=== PATIENT | male | born 1980 | race African-American/Black ===

== ENCOUNTER 2019-02-11 07:39 | Emergency (ER) | payer OTHER ==
[2019-02-11 07:54] LABS: Hematocrit 44 % (42-52); Mean Corpuscular HGB Conc 35 g/dL (31-36); Mean Corpuscular Hemoglobin 32 pg (27-31); Mean Corpuscular Volume 92 fL (80-94); Mean Platelet Volume 8.8 fL (7.4-10.4); Platelet Count 224 10^3/uL (150-450); Red Blood Count 4.75 10^6 /uL (4.18-5.48); Red Cell Distribution Width 13 % (10-15); White Blood Count 7.1 10^3/uL (3.5-10.8)
[2019-02-11] MEDS ORDERED: NS 0.9% 1000 ML** 1,000 ML IV ONE ×2 (07:57→08:44)
[2019-02-11 08:02] LABS: INR 1.02 (0.82-1.09)
[2019-02-11 08:11] LABS: Albumin 4.4 g/dL (3.2-5.2); Albumin/Globulin Ratio 1.7 (1-3); BUN/Creatinine Ratio 12.9 (8-20); Calcium 9.3 mg/dL (8.6-10.3); EGFR African American 122.1 (>60); EGFR Non-African American 100.9 (>60); Globulin 2.6 g/dL (2-4); Potassium 4.4 mmol/L (3.5-5.0); Total Bilirubin 0.9 mg/dL (0.2-1.0)
[2019-02-11 08:27] LABS: ABS Basophils 0.1 10^3/ul (0-0.2); ABS Eosinophils 0.2 10^3/ul (0-0.6); ABS Lymphocytes 3.3 10^3/ul (1.0-4.8); ABS Monocytes 0.6 10^3/ul (0-0.8); ABS Neutrophils 2.9 10^3/ul (1.5-7.7); Eosinophil % 3.2 %; Lymphocyte % 46.8 %
[2019-02-11 08:41] LABS: Magnesium 1.9 mg/dL (1.9-2.7)
[2019-02-11] MEDS ORDERED: Aspirin 81 mg CHEW TAB* 81 MG TAB.CHEW PO ONE (08:45)
--- NOTE | 2019-02-11 08:50 | ED ---
HPI Chest Pain - HPI Summary HPI Summary: Pt is a 38 y/o M presenting to the ED with a chief complaint of epigatric pain - squeezing this am. Pt states he has been having palpitations for many months - pt ially onset this morning upon waking up described as fluttering. He reports palpitations and slight SOB at the time that has since resolved, and notes unrelated kidney pain. He denies nausea and diaphoresis. He states that he has hx of palpitations that he has not yet been completely evaluated for; he was supposed to be placed on a 48hr personnel monitor in September of 2018 but then was incarcerated, and is not currently seeing a garage manager. The palpitations come on intermittently without any specific aggravating or alleviating factors. Pt states has been seen at hospital x2 since incarcerated - advised to see cards. Currently no cp, sob, abd pain. no n/v. Pt states feels intermittent palp. No lightheadedness Pt smokes cigarettes. Used ecstasy before incarceration. no htn., dm, hld. no fam hx meds reviewed - History of Current Complaint Chief Complaint: EDChestPainROMI Time Seen by Provider: 02/11/19 07:55 Hx Obtained From: Patient Onset/Duration: Started Hours Ago, Resolved - palpitations are present, pain is not Timing: Intermittent, Lasting Minutes Initial Severity: Moderate Current Severity: Mild Pain Intensity: 3 Pain Scale Used: 0-10 Numeric Chest Pain Location: Left Anterior Chest Pain Radiates: No Character: Fluttering Aggravating Factor(s): Nothing Alleviating Factor(s): Nothing Associated Signs and Symptoms: Positive: Chest Pain, Shortness of Breath, Palpitations. Negative: Diaphoresis, Nausea - Allergy/Home Medications Allergies/Adverse Reactions: Allergies Allergy/AdvReac Type Severity Reaction Status Date / Time Penicillins Allergy Swelling Verified 02/11/19 07:47 Home Medications: Home Medications Albuterol HFA INHALER* [Ventolin HFA Inhaler*] 2 puff INH Q4HR PRN 02/11/19 [ History Confirmed 02/11/19] Claritin 10 MG CAP 10 mg PO DAILY 02/11/19 [History Confirmed 02/11/19] PMH/Surg Hx/FS Hx/Imm Hx Previously Healthy: Yes Endocrine/Hematology History: Denies: Hx Diabetes Cardiovascular History: Denies: Hx Hypercholesterolemia, Hx Hypertension Respiratory History: Reports: Hx Asthma - Surgical History Surgical History: None Infectious Disease History: No Infectious Disease History: Denies: Traveled Outside the [place] in Last 30 Days - Family History Known Family History: Positive: Diabetes, Other - CA, Non-Contributory Negative: Blood Disorder - no blood clots that he's aware of - Social History Alcohol Use: Occasionally - when not incarcerated Hx Substance Use: Yes Substance Use Type: Reports: Other - MDMA Hx Tobacco Use: Yes Smoking Status (MU): Current Some Day Smoker Review of Systems Negative: Skin Diaphoresis Positive: Palpitations, Chest Pain Positive: Shortness Of Breath Negative: Nausea Positive: other - "kidney pain" All Other Systems Reviewed And Are Negative: Yes Physical Exam - Summary Physical Exam Summary: Vital Signs Reviewed: Yes - accompanied by 2 correction officers A+Ox3, no distress Eyes: Conjunctiva Clear, JO ANN. EOM intact and full ENT: Hearing grossly normal TM x 2 clear, mmoist, uvula midline, no exudate, no erythema Neck: Positive: Supple Respiratory: Positive: No respiratory distress, No accessory muscle use + CTA throughout no w/r Cardiovascular: RRR nl s1, s2 no m/r CBT <2 sec non reproducible abd soft + BS nt/nd no guarding, no distension Musculoskeletal Exam: LOZADA x 4 without difficulty Strength Intact, ROM Intact Neurological: Positive: Alert, + sensation throughout Psychological: Positive: Normal Response To examiner Skin: Positive: no rash, no ecchymosis Triage Information Reviewed: Yes Vital Signs On Initial Exam: Initial Vitals Temp Pulse Resp BP Pulse Ox 98.2 F 74 18 149/51 96 02/11/19 07:40 02/11/19 07:40 02/11/19 07:40 02/11/19 07:40 02/11/19 07:40 Vital Signs Reviewed: Yes Diagnostics - Vital Signs Vital Signs Temp Pulse Resp BP Pulse Ox 02/11/19 07:40 98.2 F 74 18 149/51 96 - Laboratory Lab Results: Lab Results 02/11/19 02/11/19 02/11/19 Range/Units 07:47 07:47 07:47 WBC 7.1 (3.5-10.8) 10^3/uL RBC 4.75 (4.18-5.48) 10^6 /uL Hgb 15.0 (14.0-18.0) g/dL Hct 44 (42-52) % MCV 92 (80-94) fL MCH 32 H (27-31) pg MCHC 35 (31-36) g/dL RDW 13 (10-15) % Plt Count 224 (150-450) 10^3/uL MPV 8.8 (7.4-10.4) fL Neut % (Auto) 40.7 % Lymph % (Auto) 46.8 % [place] % (Auto) 8.3 % Eos % (Auto) 3.2 % Baso % (Auto) 1.0 % Absolute Neuts (auto) 2.9 (1.5-7.7) 10^3/ul Absolute Lymphs (auto) 3.3 (1.0-4.8) 10^3/ul Absolute Monos (auto) 0.6 (0-0.8) 10^3/ul Absolute Eos (auto) 0.2 (0-0.6) 10^3/ul Absolute Basos (auto) 0.1 (0-0.2) 10^3/ul Absolute Nucleated RBC 0.0 10^3/ul Nucleated RBC % 0.0 INR (Anticoag Therapy) 1.02 (0.82-1.09) Sodium 138 (135-145) mmol/L Potassium 4.4 (3.5-5.0) mmol/L Chloride 105 (101-111) mmol/L Carbon Dioxide 29 (22-32) mmol/L Anion Gap 4 (2-11) mmol/L BUN 11 (6-24) mg/dL Creatinine 0.85 (0.67-1.17) mg/dL Est GFR ( Amer) 122.1 (>60) Est GFR (Non-Af Amer) 100.9 (>60) BUN/Creatinine Ratio 12.9 (8-20) Glucose 87 (70-100) mg/dL Calcium 9.3 (8.6-10.3) mg/dL Magnesium 1.9 (1.9-2.7) mg/dL Total Bilirubin 0.90 (0.2-1.0) mg/dL AST 18 (13-39) U/L ALT 24 (7-52) U/L Alkaline Phosphatase 61 (34-104) U/L Troponin I 0.00 (<0.04) ng/mL Total Protein 7.0 (6.4-8.9) g/dL Albumin 4.4 (3.2-5.2) g/dL Globulin 2.6 (2-4) g/dL Albumin/Globulin Ratio 1.7 (1-3) Result Diagrams: 02/11/19 07:47 02/11/19 07:47 Lab Statement: Any lab studies that have been ordered have been reviewed, and results considered in the medical decision making process. - Radiology CXR Radiology Interpretation Completed By: Radiologist Summary of Radiographic Findings: No active cardiopulmonary disease is noted. ED physician has reviewed this report. - EKG 0739 Cardiac Rate: Bradycardia - 56bpm EKG Rhythm: Sinus Bradycardia ST Segment: Normal Ectopy: None Summary of EKG Findings: EKG at 0739 shows sinus bradycardia at 56bpm with nml ST segment, nml T-waves, nml axis. No acute changes. 1057 Cardiac Rate: Bradycardia - 58bpm EKG Rhythm: Sinus Bradycardia ST Segment: Normal Ectopy: None EKG Comparison: No Significant Change Summary of EKG Findings: EKG at 1057 shows sinus bradycardia at 58bpm with nml ST segment, nml T-waves, nml axis. No acute changes. No change from 0739. Re-Evaluation - Re-Evaluation 1st re-eval Re-Evaluation Time: 09:17 Change: Unchanged Comment: I spoke to the pt to inform him of the lab results. CXR neg 2nd re-eval Re-Evaluation Time: 11:14 Change: Improved Comment: Pt states he feels better. I informed him of his negative lab results and the plan for discharge, he is stable and agreeable with this plan. Chest Pain Course/Dx - Course Course Of Treatment: Patient presents to urgent care reporting that he's had some palpitations. Patient states he also had one episode of chest pain that happened about 6:30 this morning. Patient was sent here for further evaluation. Patient with an ongoing history of palpitations for many months. Patient has been referred to cardiology but has not been able to see them. Patient denies any trauma. Patient denies any SOB, nausea, diaphoresis. On exam vital signs are stable although he has a mildly elevated blood pressure. Nothing focal concerning physical exam. We'll give patient aspirin. EKG nondiagnostic study. We'll check labs including a d-dimer thyroid. We'll give intravenous fluid as well as aspirin. If this is negative anticipate a recheck in 3 hours. If this is negative we'll discharge patient back to his facility with recommendations to follow-up with cardiac. Patient comfortable in agreement with plan. - Diagnoses Provider Diagnoses: Palpitations Discharge ED - Sign-Out/Discharge Documenting (check all that apply): Patient Departure Patient Received Moderate/Deep Sedation with Procedure: No - Discharge Plan Condition: Stable Disposition: HOME Patient Education Materials: Heart Palpitations (ED) Referrals: Geoff CARLOS,Booker Navarrete [Primary Care Provider] - Additional Instructions: - Stay well hydrated. Drink plenty of non-caffinated beverages - work to decrease cigarette smoke - it is recommended you follow-up wit has garage manager as previously advised - Billing Disposition and Condition Condition: STABLE Disposition: Home - Attestation Statements Document Initiated by Scribe: Yes Documenting Scribe: Millie Yancey Provider For Whom Maudeibe is Documenting (Include Credential): Nicki Corona MD. Scribe Attestation: Millie Lujan, aried for Nicki Corona MD. on 02/11/19 at 1345. Scribe Documentation Reviewed: Yes Provider Attestation: The documentation as recorded by the maudeibMillie myrick accurately reflects the service I personally performed and the decisions made by , Nicki Corona MD. Status of Scribe Document: Viewed
[2019-02-11 09:23] LABS: TSH (Thyroid Stimulating Horm) 0.78 mcIU/mL (0.34-5.60)
[2019-02-11 11:36] VITALS: BP 125/83
== END 2019-02-11 11:45 | disposition home or self-care (01) ==
LOC: ED 07:39
DX: R00.2 Palpitations (principal); J45.909 Unspecified asthma, uncomplicated; F17.210 Nicotine dependence, cigarettes, uncomplicated; Z79.899 Other long term (current) drug therapy; Z88.0 Allergy status to penicillin
CPT/HCPCS: 36415; 71045; 80053; 83735; 84443; 84484; 85025; 85379; 85610; 93005; 96360; 96361; 99284; A9270-GY